=== PATIENT | male | born 1950 | race Caucasian/White ===

== ENCOUNTER 2018-08-20 15:06 | Outpatient (REF) | payer MEDICARE, MEDICAID, SELFPAY ==
[2018-08-20 22:37] LABS: TSH 2.14 uIU/mL (0.358-3.74)
== END 2018-08-20 15:26 ==
LOC: NCHCN 15:06
PROVIDERS: PCP Family Medicine; Visit Provider Family Medicine
DX: E03.9 Hypothyroidism, unspecified (principal)
CPT/HCPCS: 84443

== ENCOUNTER 2019-06-24 12:10 | Outpatient (REF) | payer MEDICARE, MEDICAID, SELFPAY ==
[2019-06-24 22:21] LABS: ALT 19 U/L (16-63); AST 15 U/L (15-37); Albumin 3.5 g/dL (3.4-5.0); Alkaline Phosphatase 281 U/L (46-116); Anion Gap 7.5 mmol/L (3-11); BUN 62 mg/dL (7-18); Bilirubin, Total 0.4 mg/dL (0.2-1.0); CO2 28.5 mmol/L (21.0-32.0); CREATININE 3.26 mg/dL (0.70-1.30); Chloride 102 mmol/L (98-107); Estimated GFR 18.95 (mL/min/1.73m2); Glucose 136 mg/dL (70-100); Potassium 5.1 mmol/L (3.5-5.1); Sodium 138 mmol/L (136-145); Total Protein 6.8 g/dL (6.4-8.2)
== END 2019-06-24 12:30 ==
LOC: NCHCN 12:10
PROVIDERS: PCP Family Medicine; Visit Provider Nurse Practitioner Community Health
DX: R60.0 Localized edema (principal)
CPT/HCPCS: 80053

== ENCOUNTER 2020-12-14 09:42 | Outpatient (REF) | payer MEDICARE, MEDICAID, SELFPAY ==
[2020-12-14 13:42] LABS: Anion Gap 6.6 mmol/L (3-11); BUN 64 mg/dL (7-18); CO2 28.4 mmol/L (21.0-32.0); CREATININE 3.2 mg/dL (0.70-1.30); Calcium 9.4 mg/dL (8.5-10.1); Chloride 105 mmol/L (98-107); Glucose 93 mg/dL (74-106); Potassium 5.5 mmol/L (3.5-5.1); Sodium 140 mmol/L (136-145)
== END 2020-12-14 09:43 | disposition home or self-care (01) ==
LOC: NCHCN 09:42
PROVIDERS: PCP Family Medicine; Visit Provider Nurse Practitioner Community Health
DX: N18.4 Chronic kidney disease, stage 4 (severe) (principal)
CPT/HCPCS: 80048

== ENCOUNTER 2021-01-18 20:51 | Outpatient (REF) | payer MEDICARE, MEDICAID, SELFPAY | END 2021-01-18 20:52 | disposition home or self-care (01) | LOC: NCHCN 20:51 | PROVIDERS: PCP Family Medicine; Visit Provider Nurse Practitioner Community Health | DX: R32 Unspecified urinary incontinence (principal) | CPT/HCPCS: 87086 ==